=== PATIENT | female | born 1985 | race Caucasian/White ===

== ENCOUNTER 2016-10-24 10:30 | Outpatient (CLI) | payer OTHER ==
[2016-10-24] MEDS ORDERED: NORMAL SALINE 10 ML SYRINGE FLUSH IVP PRN (10:37)
[2016-10-24 10:41] VITALS: RESP 16; TEMP 98
[2016-10-24 11:32] LABS: BACTERIA,URINE RARE; BILIRUBIN,URINE NEGATIVE (NEG); CLARITY,URINE CLEAR (CLEAR); GLUCOSE, URINE (UA) NEGATIVE (NEG); LEUKOCYTE ESTERASE ,URINE TRACE (NEG); NITRATE,URINE NEGATIVE (NEG); OCCULT BLOOD,URINE NEGATIVE (NEG); PH,URINE 6.5 (5.0-8.5); PROTEIN,URINE NEGATIVE (NEG); SQUAMOUS EPITHELIAL CELL,UR FEW; URINE SAMPLE TYPE CLEAN CATCH URINE; UROBILINOGEN,URINE 0.2 mg/dL (0.2); WBC,URINE 0-3
[2016-10-24 12:13] LABS: CANNABINOID SCREEN,URINE NEGATIVE (NEG); COCAINE SCREEN NEGATIVE (NEG); METHAMPHETAMINES SCREEN,URINE NEGATIVE (NEG); TRICYCLIC ANTIDEPRESSANT,URINE NEGATIVE (NEG)
--- NOTE | 2016-10-24 12:35 | DI ---
HISTORY: Vaginal bleeding. COMPARISON: None available. TECHNIQUE: Sonographic images of the pelvis were obtained and submitted for interpretation. 11 imag es. FINDINGS: There is a single live intrauterine with a heart rate of approximately 146 beats per minute. The placenta is located posteriorly. The fetus is in breech presentation currently. The estimated age ranges from 23 weeks 5 days to 24 weeks 4 days. The VANCE is 18.3 cm. The current estimated weight is 657 g. IMPRESSION: 1. There is a single live intrauterine with a heart rate of approximately 146 beats p er minute. 2. The placenta is located posteriorly. The fetus is in breech presentation currently. 3. The estimated age ranges from 23 weeks 5 days to 24 weeks 4 days. 4. The VANCE is 18.3 cm. 5. The current estimated weight is 657 g. NOTE: The interpreting Radiologist was not present at the time of ultrasound interrogation.
--- NOTE | 2016-10-24 12:39 | DI ---
HISTORY: Vaginal bleeding. COMPARISON: None available. TECHNIQUE: Sonographic images of the pelvis were obtained and submitted for interpretation. 11 imag es. FINDINGS: The cervix appears closed, and measures 5.7 cm in length IMPRESSION: 1. The cervix appears closed, and measures 5.7 cm in length.
--- NOTE | 2016-10-24 12:41 | DI ---
HISTORY: Vaginal bleeding. COMPARISON: None available. TECHNIQUE: Sonographic images of the pelvis were obtained and submitted for interpretation. 9 image s. FINDINGS: The sagittal cervix is traced in its entirety, and ranges in measurement from 4.4 cm to 5. 1 cm in length. The cervix appears closed. The placenta is located posteriorly, grade 1. IMPRESSION: 1. The sagittal cervix is traced in its entirety, and ranges in measurement from 4.4 cm to 5.1 cm in length. The cervix appears closed. 2. The placenta is located posteriorly, grade 1.
--- NOTE | 2016-10-25 22:30 | PDOC(PROG) ---
Intake - - Reason for Visit/Chief Complaint: Vaginal Bleeding Admitted From: Home - Estimated Due Date: 02/15/17 Gestational Age in Weeks and Days: 23 Weeks and 6 Days : 3 Para: 1 Births: 1 Number of Abortions (Spont./Elective): 1 Living Children: 1 - Labs Blood Type and Rh: AB - Group B Strep: Unknown Hepatitis B Surface Antigen: Absent HIV: Negative Rubella Status: Immune VDRL/RPR: Absent Maternal - Vital Signs Last Taken Vital Signs: Vital Signs - Last Taken Temperature 98.0 F 10/24/16 10:40 Pulse Rate 106 H 10/24/16 10:40 Respiratory Rate 16 10/24/16 10:40 Blood Pressure 118/71 10/24/16 10:40 Pulse Ox 98 10/24/16 10:40 - Uterine Activity Uterine Contraction Monitor Mode: External Contraction Frequency(minutes): X1 Contraction Duration (seconds): 60 Uterine Tone Measurement Phase: Resting Uterine Contraction Intensity: Moderate - Vaginal Discharge Vaginal Bleeding Amount: Spotting Vaginal Bleeding Onset: began Sunday 10/21 now just with wiping pink Vaginal Discharge Amount: Scant Vaginal Discharge Description: Watery Vaginal Discharge Color: [place] Vaginal Discharge Odor: Odorless Monitoring - Uterine Activity Uterine Contraction Monitor Mode: External Contraction Frequency(minutes): X1 Contraction Duration (seconds): 60 Uterine Tone Measurement Phase: Resting Uterine Contraction Intensity: Moderate Results - Bedside Testing Bedside Urine Ketone: Negative Bedside Urine Leukocytes Esterase: Negative Bedside Urine Nitrite: Negative Bedside Urine Occult Blood: Negative Bedside Urine Protein: Negative Bedside Specific [place]: 1.005 Assessment and Plan - Patient Problems (1) Spotting affecting Status: Acute
== END 2016-10-24 12:40 | disposition home or self-care (01) ==
LOC: OBOP 10:30
PROVIDERS: ATTEND Family Medicine
DX: O46.8X2 Other antepartum hemorrhage, second trimester (principal); Z3A.23 23 weeks gestation of pregnancy
CPT/HCPCS: 59025; 76815 ×2; 76817; 81001; 81003; 84112; 87210; 99211; G0477

== ENCOUNTER → 2016-11-07 | Outpatient (CLI) | payer OTHER ==
[2016-11-07 11:28] LABS: BLOODY SPECIMEN? NO
== END ==
LOC: MOB LAB 10:22
PROVIDERS: ATTEND Family Medicine
DX: O47.02 False labor before 37 completed weeks of gestation, second trimester (principal); Z3A.25 25 weeks gestation of pregnancy
CPT/HCPCS: 82731; 87210

== ENCOUNTER 2016-11-21 12:47 | Outpatient (CLI) | payer OTHER ==
[2016-11-21] MEDS ORDERED: NORMAL SALINE 10 ML SYRINGE FLUSH IVP PRN (12:52)
[2016-11-21 13:22] VITALS: RESP 18; TEMP 98.1
[2016-11-21 13:40] LABS: HEMATOCRIT 38.3 % (37.0-47.0); HEMOGLOBIN 13.2 g/dL (12.0-16.0); MEAN CORPUSCULAR HEMOGLOBIN 31.1 PG (27-31); MEAN CORPUSCULAR HGB CONC 34.5 g/dL (33-37); MEAN PLATELET VOLUME 9.7 FL (7.4-12.2); RDW COEFFICIENT OF VARIATION 13.8 % (11.5-14.5); RED BLOOD COUNT 4.25 10^6/uL (4.20-5.40); WHITE BLOOD COUNT 9.61 10^3/uL (4.8-10.8)
[2016-11-21 13:49] LABS: ASPARTATE AMINO TRANSFERASE 33 IU/L (8-39); BILIRUBIN,TOTAL 0.5 mg/dL (0.3-1.2); BLOOD UREA NITROGEN 5 mg/dL (7-22); CALCIUM 9.3 mg/dL (8.7-10.7); CHLORIDE 103 meq/L (98-112); CREATININE 0.5 mg/dL (0.50-1.20); EST GLOMERULAR FILTRATION > 60 (>60 ml/min/1.73m(2)); GLUCOSE 72 mg/dL (78-110); POTASSIUM 3.7 meq/L (3.8-5.2); SODIUM 137 meq/L (135-145); TOTAL PROTEIN 7.4 g/dL (6.1-8.0); URIC ACID 3.1 mg/dl (2.5-6.2)
[2016-11-21] MEDS ORDERED: [UNRECOGNIZED DRUG - REMARK] IM ONE (14:30)
[2016-11-21 14:37] LABS: BLOODY SPECIMEN? NO
--- NOTE | 2016-11-21 17:43 | DI ---
HISTORY: labor in the 3rd trimester without delivery. COMPARISON: None available. TECHNIQUE: Sonographic images of the pelvis were obtained and submitted for interpretation. FINDINGS: Single intrauterine at 29 weeks 0 days, plus or minus 1.5 weeks of standard alexsander ation. heart rate is recorded at 149 beats per minute. Amniotic fluid index of 17.8 cm. Ther e is evidence of posterior placenta. IMPRESSION: 1. Single intrauterine at 29 weeks 0 days, plus or minus 1.5 weeks of standard deviation. 2. heart rate of 149 beats per minute. 3. Amniotic fluid index of 17.8 cm. 4. Posterior placenta. NOTE: The interpreting Radiologist was not present at the time of ultrasound interrogation.
--- NOTE | 2016-11-21 17:52 | DI ---
HISTORY: labor in the 3rd trimester without delivery. COMPARISON: None available. TECHNIQUE: Sonographic images of the pelvis were obtained transvagianlly and submitted for interpret ation. FINDINGS: Endovaginal examination was performed for better evaluation of the cervix. The cervix mainor sures 4.3 cm. The internal os is closed. IMPRESSION: 1. Endovaginal examination for better evaluation of the cervix. 2. Cervix measures 4.3 cm. 3. Internal os is closed.
--- NOTE | 2016-11-24 13:09 | PDOC(PROG) ---
Intake - - Reason for Visit/Chief Complaint: Contractions Admitted From: Physician Office - Estimated Due Date: 02/15/17 Gestational Age in Weeks and Days: 28 Weeks and 1 Days : 3 Para: 1 Number of Abortions (Spont./Elective): 1 - Labs Blood Type and Rh: AB - Group B Strep: Unknown Hepatitis B Surface Antigen: Absent HIV: Negative Rubella Status: Immune VDRL/RPR: Absent Maternal - Vital Signs Last Taken Vital Signs: Vital Signs - Last Taken Temperature 98.1 F 11/21/16 13:00 Pulse Rate 88 11/21/16 13:00 Respiratory Rate 18 11/21/16 13:00 Blood Pressure 130/64 11/21/16 12:52 Pulse Ox 98 11/21/16 12:52 - Uterine Activity Uterine Contraction Monitor Mode: External Contraction Frequency(minutes): 2-3 Contraction Duration (seconds): 40-100 Uterine Contraction Pattern: Regular Uterine Tone Measurement Phase: soft Uterine Contraction Intensity: Moderate - Vaginal Discharge Vaginal Bleeding Amount: None Vaginal Discharge Amount: Small Vaginal Discharge Color: White Vaginal Discharge Odor: Odorless Vaginal Itching: No Monitoring - Uterine Activity Uterine Contraction Monitor Mode: External Contraction Frequency(minutes): 2-3 Contraction Duration (seconds): 40-100 Uterine Contraction Pattern: Regular Uterine Tone Measurement Phase: soft Uterine Contraction Intensity: Moderate Results - Labs CBC and BMP: 11/21/16 13:23 11/21/16 13:23 - Bedside Testing Bedside Urine Ketone: Negative Bedside Urine Leukocytes Esterase: Negative Bedside Urine Nitrite: Negative Bedside Urine Occult Blood: Negative Bedside Urine Protein: Trace Bedside Specific [place]: 1.005 Assessment and Plan - Patient Problems (1) uterine contractions in third trimester, antepartum Status: Acute
== END 2016-11-21 15:00 | disposition home or self-care (01) ==
LOC: OBOP 12:47
PROVIDERS: ATTEND Family Medicine
DX: O60.03 Preterm labor without delivery, third trimester (principal); Z87.59 Personal history of other complications of pregnancy, childbirth and the puerperium; Z3A.29 29 weeks gestation of pregnancy
CPT/HCPCS: 36415; 59025; 76815; 76817; 80053; 81003; 82731; 83615; 84550; 85025; 87210; 99211

== ENCOUNTER → 2016-11-23 | Outpatient (CLI) | payer OTHER ==
[2016-11-23 08:22] LABS: HEMATOCRIT 38.1 % (37.0-47.0); MEAN CORPUSCULAR HEMOGLOBIN 30.7 PG (27-31); MEAN CORPUSCULAR HGB CONC 34.1 g/dL (33-37); MEAN PLATELET VOLUME 9.3 FL (7.4-12.2); RDW COEFFICIENT OF VARIATION 13.8 % (11.5-14.5); RED BLOOD COUNT 4.24 10^6/uL (4.20-5.40); WHITE BLOOD COUNT 8.2 10^3/uL (4.8-10.8)
== END ==
LOC: LAB 08:03
PROVIDERS: ATTEND Family Medicine
DX: O36.0130 Maternal care for anti-D [Rh] antibodies, third trimester, not applicable or unspecified (principal); O09.893 Supervision of other high risk pregnancies, third trimester; Z36 Encounter for antenatal screening of mother; Z3A.28 28 weeks gestation of pregnancy
CPT/HCPCS: 82950; 84443; 85027; 86850; 86900; 86901; J2790

== ENCOUNTER 2016-11-25 08:27 | Outpatient (CLI) | payer OTHER ==
[2016-11-25] MEDS ORDERED: NORMAL SALINE 10 ML SYRINGE FLUSH IVP PRN (08:33)
[2016-11-25 08:38] VITALS: RESP 18; TEMP 97.4
--- NOTE | 2016-11-28 22:13 | PDOC(PROG) ---
Intake - - Reason for Visit/Chief Complaint: NST Admitted From: Home - LMP: 04/04/17 Estimated Due Date: 02/15/17 Gestational Age in Weeks and Days: 28 Weeks and 5 Days : 2 Para: 1 Births: 1 Number of Abortions (Spont./Elective): 1 Living Children: 1 - Labs Blood Type and Rh: AB - Group B Strep: Unknown Hepatitis B Surface Antigen: Absent HIV: Negative Rubella Status: Immune VDRL/RPR: Absent Maternal - Vital Signs Last Taken Vital Signs: Vital Signs - Last Taken Temperature 97.4 F 11/25/16 08:38 Pulse Rate 100 11/25/16 08:38 Respiratory Rate 18 11/25/16 08:38 Blood Pressure 145/80 11/25/16 08:38 Pulse Ox 99 11/25/16 08:38 - Uterine Activity Uterine Contraction Monitor Mode: External Uterine Contraction Pattern: Irregular - Vaginal Discharge Vaginal Bleeding Amount: None Vaginal Discharge Amount: None Monitoring - Uterine Activity Uterine Contraction Monitor Mode: External Uterine Contraction Pattern: Irregular Assessment and Plan - Patient Problems (1) uterine contractions in third trimester, antepartum Status: Acute
== END 2016-11-25 09:05 | disposition home or self-care (01) ==
LOC: OBOP 08:27
PROVIDERS: ATTEND Family Medicine
DX: O60.03 Preterm labor without delivery, third trimester (principal); Z3A.28 28 weeks gestation of pregnancy
CPT/HCPCS: 59025; 99211

== ENCOUNTER 2016-11-29 08:42 | Outpatient (CLI) | payer OTHER ==
[~2016-11-29 08:42] MED LIST: NORMAL SALINE 10 ML SYRINGE FLUSH IVP PRN
[2016-11-29 09:03] VITALS: RESP 16; TEMP 97.8
[2016-11-29 09:10] LABS: HEMATOCRIT 37.3 % (37.0-47.0); HEMOGLOBIN 12.7 g/dL (12.0-16.0); MEAN CORPUSCULAR HEMOGLOBIN 30.3 PG (27-31); MEAN PLATELET VOLUME 9.6 FL (7.4-12.2); RDW COEFFICIENT OF VARIATION 13.8 % (11.5-14.5); RED BLOOD COUNT 4.19 10^6/uL (4.20-5.40); WHITE BLOOD COUNT 8.24 10^3/uL (4.8-10.8)
[2016-11-29 09:21] LABS: ASPARTATE AMINO TRANSFERASE 33 IU/L (8-39); BILIRUBIN,TOTAL 0.4 mg/dL (0.3-1.2); BLOOD UREA NITROGEN 7 mg/dL (7-22); CHLORIDE 104 meq/L (98-112); CREATININE 0.5 mg/dL (0.50-1.20); EST GLOMERULAR FILTRATION > 60 (>60 ml/min/1.73m(2)); GLUCOSE 109 mg/dL (78-110); POTASSIUM 3.4 meq/L (3.8-5.2); SODIUM 134 meq/L (135-145); TOTAL PROTEIN 6.9 g/dL (6.1-8.0); URIC ACID 3.5 mg/dl (2.5-6.2)
--- NOTE | 2016-11-29 10:35 | DI ---
US OB , LIMITED,11/29/2016 8:46 AM: Clinical History: contractions. Previous Exam: November 21, 2016 Findings: Multiple grayscale and color Doppler sonographic images are obtained through the uterus demonstrating a normal amniotic fluid index measuring 20.6 cm. The placenta appears grossly normal. Estimated gestational age was determined by a composite of biparietal diameter, head circumference, a bdominal circumference and femur length yielding an estimated gestational age by ultrasound of 29 wee ks 2 days. Detected Doppler heart tones measured 136 beats per minute. Impression: Single live intrauterine gestation with size equal to dates.
--- NOTE | 2016-12-07 12:55 | PDOC(PROG) ---
Intake - - Reason for Visit/Chief Complaint: NST Admitted From: Home - Estimated Due Date: 02/15/17 Gestational Age in Weeks and Days: 30 Weeks and 0 Days : 2 Para: 1 Living Children: 1 Maternal - Vital Signs Last Taken Vital Signs: Vital Signs - Last Taken Temperature 97.8 F 11/29/16 08:51 Pulse Rate 115 H 11/29/16 08:51 Respiratory Rate 16 11/29/16 08:51 Blood Pressure 122/72 11/29/16 08:51 Pulse Ox 99 11/29/16 08:30 - Uterine Activity Uterine Contraction Monitor Mode: External Contraction Frequency(minutes): 3-10 Contraction Duration (seconds): 50 Uterine Contraction Pattern: Irregular Uterine Tone Measurement Phase: Resting - Vaginal Discharge Vaginal Bleeding Amount: None Monitoring - Uterine Activity Uterine Contraction Monitor Mode: External Contraction Frequency(minutes): 3-10 Contraction Duration (seconds): 50 Uterine Contraction Pattern: Irregular Uterine Tone Measurement Phase: Resting Results - Labs CBC and BMP: 11/29/16 09:02 11/29/16 09:02 - Bedside Testing Bedside Urine Ketone: Negative Bedside Urine Leukocytes Esterase: Negative Bedside Urine Nitrite: Negative Bedside Urine Occult Blood: Negative Bedside Urine Protein: Negative Bedside Specific [place]: 1.010 Assessment and Plan - Patient Problems (1) uterine contractions in third trimester, antepartum Status: Acute
== END 2016-11-29 10:45 | disposition home or self-care (01) ==
LOC: OBOP 08:42
PROVIDERS: ATTEND Family Medicine
DX: O60.03 Preterm labor without delivery, third trimester (principal); Z87.59 Personal history of other complications of pregnancy, childbirth and the puerperium; Z3A.28 28 weeks gestation of pregnancy
CPT/HCPCS: 36415; 59025; 76815; 80053; 81003; 83615; 84550; 85025; 99211

== ENCOUNTER 2016-12-02 08:23 | Outpatient (CLI) | payer OTHER ==
[2016-12-02 08:48] VITALS: RESP 18
[2016-12-02 09:28] VITALS: TEMP 98
--- NOTE | 2016-12-10 21:08 | PDOC(PROG) ---
Intake - - Reason for Visit/Chief Complaint: Contractions, NST Admitted From: Home - LMP: 04/04/16 Estimated Due Date: 02/15/17 Gestational Age in Weeks and Days: 30 Weeks and 3 Days : 2 Para: 1 Births: 1 Number of Abortions (Spont./Elective): 1 Living Children: 1 - Labs Blood Type and Rh: AB - Hepatitis B Surface Antigen: Absent HIV: Negative Rubella Status: Immune VDRL/RPR: Absent Maternal - Vital Signs Last Taken Vital Signs: Vital Signs - Last Taken Temperature 98.0 F 12/02/16 09:15 Pulse Rate 97 12/02/16 09:15 Respiratory Rate 18 12/02/16 09:15 Blood Pressure 113/78 12/02/16 09:15 Pulse Ox 96 12/02/16 09:15 - Uterine Activity Uterine Contraction Monitor Mode: External Contraction Frequency(minutes): irritable Uterine Tone Measurement Phase: soft - Vaginal Discharge Vaginal Bleeding Amount: None Vaginal Discharge Amount: None Monitoring - Uterine Activity Uterine Contraction Monitor Mode: External Contraction Frequency(minutes): irritable Uterine Tone Measurement Phase: soft Assessment and Plan - Patient Problems (1) uterine contractions in third trimester, antepartum Status: Acute
== END 2016-12-02 09:28 | disposition home or self-care (01) ==
LOC: OBOP 08:23
PROVIDERS: ATTEND Family Medicine
DX: O60.03 Preterm labor without delivery, third trimester (principal); Z87.59 Personal history of other complications of pregnancy, childbirth and the puerperium; Z3A.28 28 weeks gestation of pregnancy
CPT/HCPCS: 59025; 99211

== ENCOUNTER 2016-12-06 07:47 | Outpatient (CLI) | payer OTHER ==
[2016-12-06 08:06] VITALS: RESP 18; TEMP 97.9
[2016-12-06 08:55] LABS: BLOODY SPECIMEN? NO
--- NOTE | 2016-12-08 16:52 | PDOC(PROG) ---
Intake - - Reason for Visit/Chief Complaint: NST Admitted From: Home - LMP: 04/04/16 Estimated Due Date: 02/15/17 Gestational Age in Weeks and Days: 30 Weeks and 1 Days : 2 Para: 1 Births: 1 Number of Abortions (Spont./Elective): 1 Living Children: 1 - Labs Blood Type and Rh: AB - Group B Strep: Unknown Hepatitis B Surface Antigen: Absent HIV: Negative Rubella Status: Immune VDRL/RPR: Absent Maternal - Vital Signs Last Taken Vital Signs: Vital Signs - Last Taken Temperature 97.9 F 12/06/16 08:00 Pulse Rate 108 H 12/06/16 08:00 Respiratory Rate 18 12/06/16 08:00 Blood Pressure 128/77 12/06/16 08:00 Pulse Ox 100 12/06/16 08:00 - Uterine Activity Uterine Contraction Monitor Mode: External Contraction Frequency(minutes): x4 Contraction Duration (seconds): 40 Uterine Contraction Pattern: Irregular - Vaginal Discharge Vaginal Bleeding Amount: None Vaginal Discharge Amount: None Monitoring - Uterine Activity Uterine Contraction Monitor Mode: External Contraction Frequency(minutes): x4 Contraction Duration (seconds): 40 Uterine Contraction Pattern: Irregular Results - Bedside Testing Bedside Urine Ketone: Negative Bedside Urine Leukocytes Esterase: Negative Bedside Urine Nitrite: Negative Bedside Urine Occult Blood: Negative Bedside Urine Protein: Negative Bedside Specific [place]: 1.005 Assessment and Plan - Patient Problems (1) uterine contractions in third trimester, antepartum Status: Acute
== END 2016-12-06 09:00 | disposition home or self-care (01) ==
LOC: OBOP 07:47
PROVIDERS: ATTEND Family Medicine
DX: O60.03 Preterm labor without delivery, third trimester (principal); Z87.59 Personal history of other complications of pregnancy, childbirth and the puerperium; Z3A.30 30 weeks gestation of pregnancy
CPT/HCPCS: 59025; 81003; 82731; 99211

== ENCOUNTER 2016-12-09 12:44 | Outpatient (CLI) | payer OTHER ==
[2016-12-09 13:02] VITALS: RESP 18; TEMP 98
[2016-12-09 13:06] LABS: HEMATOCRIT 38.7 % (37.0-47.0); HEMOGLOBIN 13.2 g/dL (12.0-16.0); MEAN CORPUSCULAR HEMOGLOBIN 30.8 PG (27-31); MEAN CORPUSCULAR HGB CONC 34.1 g/dL (33-37); MEAN PLATELET VOLUME 9.4 FL (7.4-12.2); RED BLOOD COUNT 4.29 10^6/uL (4.20-5.40); WHITE BLOOD COUNT 9.57 10^3/uL (4.8-10.8)
[2016-12-09 13:17] LABS: ASPARTATE AMINO TRANSFERASE 50 IU/L (8-39); BILIRUBIN,TOTAL 0.4 mg/dL (0.3-1.2); BLOOD UREA NITROGEN 7 mg/dL (7-22); CALCIUM 9.2 mg/dL (8.7-10.7); CHLORIDE 102 meq/L (98-112); CREATININE 0.5 mg/dL (0.50-1.20); EST GLOMERULAR FILTRATION > 60 (>60 ml/min/1.73m(2)); GLUCOSE 111 mg/dL (78-110); POTASSIUM 3.6 meq/L (3.8-5.2); SODIUM 135 meq/L (135-145); TOTAL PROTEIN 7.4 g/dL (6.1-8.0); URIC ACID 3.5 mg/dl (2.5-6.2)
[2016-12-09 14:14] LABS: FREE T4 (FREE THYROXINE) 0.79 ng/dL (0.93-1.71)
--- NOTE | 2016-12-09 17:08 | DI ---
US OB , LIMITED,12/09/2016 1:26 PM: Clinical History: contractions and hypertension. Previous Exam: November 29, 2016 Findings: Multiple transabdominal grayscale and color Doppler sonographic images are obtained through the pelvi s demonstrating a normal cervix measuring 3.7 cm in length without funneling. A single live intrauterine gestation is seen in vertex presentation. The placenta is posterior and gr julio cesar 1 without visual defects. Detected Doppler heart tones measure 140 beats per minute. Amniotic fluid index measures 22.2 cm. Impression: Single live intrauterine gestation with normal amniotic fluid index.
--- NOTE | 2016-12-12 21:58 | PDOC(PROG) ---
Intake - - Reason for Visit/Chief Complaint: NST Admitted From: Home - Estimated Due Date: 02/15/17 Gestational Age in Weeks and Days: 30 Weeks and 5 Days : 2 Para: 1 Births: 1 Number of Abortions (Spont./Elective): 1 Living Children: 1 - Labs Blood Type and Rh: AB - Hepatitis B Surface Antigen: Absent HIV: Negative Rubella Status: Immune VDRL/RPR: Absent Maternal - Vital Signs Last Taken Vital Signs: Vital Signs - Last Taken Temperature 98 F 12/09/16 12:54 Pulse Rate 99 12/09/16 12:54 Respiratory Rate 18 12/09/16 12:54 Blood Pressure 135/71 12/09/16 12:54 Pulse Ox 100 12/09/16 12:54 - Uterine Activity Uterine Contraction Monitor Mode: External Contraction Frequency(minutes): 1-3 Contraction Duration (seconds): 40-70 Uterine Contraction Pattern: Regular - Cervical Exam Cervical Dilation (cm): 0 Cervical Effacement Percentage: 0 Station: -4 Exam Performed By: Frieda - Vaginal Discharge Vaginal Bleeding Amount: None Vaginal Discharge Amount: None Monitoring - Uterine Activity Uterine Contraction Monitor Mode: External Contraction Frequency(minutes): 1-3 Contraction Duration (seconds): 40-70 Uterine Contraction Pattern: Regular Results - Labs CBC and BMP: 12/09/16 12:50 12/09/16 12:50 - Bedside Testing Bedside Urine Ketone: Large Bedside Urine Leukocytes Esterase: Negative Bedside Urine Nitrite: Negative Bedside Urine Occult Blood: Negative Bedside Urine Protein: Negative Bedside Specific [place]: 1.020 Assessment and Plan - Patient Problems (1) uterine contractions in third trimester, antepartum Status: Acute - Assessment / Plan Additional Assessment/Plan Details: -discussed with MFMaricel at [facility] in [place]; please see separate note detailing this conversation. Continue testing for now. Will hold off on steroids given negative FFN and no objective signs of labor (ie cervix is closed, thick and high). Continue to follow closely.
== END 2016-12-09 14:48 | disposition home or self-care (01) ==
LOC: OBOP 12:44
PROVIDERS: ATTEND Family Medicine
DX: O60.03 Preterm labor without delivery, third trimester (principal); O16.3 Unspecified maternal hypertension, third trimester; O99.283 Endocrine, nutritional and metabolic diseases complicating pregnancy, third trimester; E03.9 Hypothyroidism, unspecified; Z3A.30 30 weeks gestation of pregnancy
CPT/HCPCS: 36415; 59025; 76815; 80053; 81003; 83615; 84439; 84443; 84550; 85025; 99211

== ENCOUNTER 2016-12-13 08:17 | Outpatient (CLI) | payer OTHER ==
[2016-12-13 08:41] LABS: HEMATOCRIT 38.6 % (37.0-47.0); HEMOGLOBIN 13.3 g/dL (12.0-16.0); MEAN CORPUSCULAR HGB CONC 34.5 g/dL (33-37); MEAN PLATELET VOLUME 9.5 FL (7.4-12.2); RED BLOOD COUNT 4.29 10^6/uL (4.20-5.40); WHITE BLOOD COUNT 9.77 10^3/uL (4.8-10.8)
[2016-12-13 08:52] VITALS: RESP 18
[2016-12-13 09:05] LABS: ASPARTATE AMINO TRANSFERASE 56 IU/L (8-39); BILIRUBIN,TOTAL 0.4 mg/dL (0.3-1.2); BLOOD UREA NITROGEN 9 mg/dL (7-22); CALCIUM 9.2 mg/dL (8.7-10.7); CHLORIDE 101 meq/L (98-112); CREATININE 0.6 mg/dL (0.50-1.20); EST GLOMERULAR FILTRATION > 60 (>60 ml/min/1.73m(2)); GLUCOSE 107 mg/dL (78-110); POTASSIUM 3.4 meq/L (3.8-5.2); SODIUM 134 meq/L (135-145); URIC ACID 3.8 mg/dl (2.5-6.2)
[2016-12-13 09:27] VITALS: TEMP 98
[2016-12-13] MEDS ORDERED: BETAMET ACET/BETAMET NA PH 6 MG/1 ML - 5 ML IM SCH (09:45)
[2016-12-13] MEDS ORDERED: BETAMET ACET/BETAMET NA PH 6 MG/1 ML - 5 ML ONE (10:27)
--- NOTE | 2016-12-20 09:05 | PDOC(PROG) ---
Intake - - Reason for Visit/Chief Complaint: Bi-weekly NST Admitted From: Home - Estimated Due Date: 02/19/17 Gestational Age in Weeks and Days: 31 Weeks and 2 Days : 3 Para: 1 Births: 1 Number of Abortions (Spont./Elective): 1 Living Children: 1 - Labs Blood Type and Rh: AB - Maternal - Vital Signs Last Taken Vital Signs: Vital Signs - Last Taken Temperature 98.0 F 12/13/16 09:26 Pulse Rate 102 H 12/13/16 09:26 Respiratory Rate 18 12/13/16 09:26 Blood Pressure 138/87 12/13/16 09:26 Pulse Ox 97 12/13/16 09:26 - Uterine Activity Uterine Contraction Monitor Mode: External Contraction Frequency(minutes): irritable Uterine Tone Measurement Phase: soft - Vaginal Discharge Vaginal Bleeding Amount: None Vaginal Discharge Amount: None Monitoring - Uterine Activity Uterine Contraction Monitor Mode: External Contraction Frequency(minutes): irritable Uterine Tone Measurement Phase: soft Results - Labs CBC and BMP: 12/13/16 08:26 12/13/16 08:26 - Bedside Testing Bedside Urine Ketone: Negative Bedside Urine Leukocytes Esterase: Negative Bedside Urine Nitrite: Negative Bedside Urine Occult Blood: Large Bedside Urine Protein: 1+ Bedside Specific [place]: 1.020 Assessment and Plan - Assessment / Plan Additional Assessment/Plan Details: Reactive NST. Discharge to home in good condition. - Time Time Spent With Patient: Less Than 15 Minutes
== END 2016-12-13 10:39 | disposition home or self-care (01) ==
LOC: OBOP 08:17
PROVIDERS: ATTEND Family Medicine
DX: O13.3 Gestational [pregnancy-induced] hypertension without significant proteinuria, third trimester (principal); O60.03 Preterm labor without delivery, third trimester; Z3A.30 30 weeks gestation of pregnancy
CPT/HCPCS: 36415; 59025; 80053; 81003; 83615; 84550; 85025; 96372; 99211; J0702

== ENCOUNTER 2016-12-14 09:30 | Outpatient (CLI) | payer OTHER ==
[2016-12-14 10:18] LABS: HEMOGLOBIN 12.6 g/dL (12.0-16.0); MEAN PLATELET VOLUME 9.5 FL (7.4-12.2); RDW COEFFICIENT OF VARIATION 13.8 % (11.5-14.5); RED BLOOD COUNT 4.07 10^6/uL (4.20-5.40); WHITE BLOOD COUNT 12.11 10^3/uL (4.8-10.8)
[2016-12-14 10:45] LABS: ASPARTATE AMINO TRANSFERASE 75 IU/L (8-39); BILIRUBIN,TOTAL 0.4 mg/dL (0.3-1.2); BLOOD UREA NITROGEN 6 mg/dL (7-22); CALCIUM 9.1 mg/dL (8.7-10.7); CHLORIDE 102 meq/L (98-112); CREATININE 0.6 mg/dL (0.50-1.20); EST GLOMERULAR FILTRATION > 60 (>60 ml/min/1.73m(2)); GLUCOSE 116 mg/dL (78-110); POTASSIUM 3.6 meq/L (3.8-5.2); SODIUM 134 meq/L (135-145); TOTAL PROTEIN 7.3 g/dL (6.1-8.0); URIC ACID 3.9 mg/dl (2.5-6.2)
[2016-12-14 11:07] VITALS: RESP 18; TEMP 98.2
[2016-12-16 12:47] LABS: 24 HR URINE CREA 631.1 mg/DAY
[2016-12-16 12:48] LABS: 24 HOUR URINE CREA CONCENTR 15.3 mg/dL
--- NOTE | 2016-12-20 17:50 | PDOC(PROG) ---
Intake - - Reason for Visit/Chief Complaint: NST, Other Additional Reason(s) for Visit: Labs, 24hr urine protein Admitted From: Home - Estimated Due Date: 02/15/17 Gestational Age in Weeks and Days: 31 Weeks and 6 Days : 2 Para: 1 Births: 1 Number of Abortions (Spont./Elective): 1 Living Children: 1 - Labs Blood Type and Rh: AB - Group B Strep: Unknown Hepatitis B Surface Antigen: Absent HIV: Negative Rubella Status: Immune VDRL/RPR: Absent Maternal - Vital Signs Last Taken Vital Signs: Vital Signs - Last Taken Temperature 98.2 F 12/14/16 11:04 Pulse Rate 102 H 12/14/16 11:04 Respiratory Rate 18 12/14/16 11:04 Blood Pressure 128/78 12/14/16 11:04 Pulse Ox 99 12/14/16 11:04 - Uterine Activity Uterine Contraction Monitor Mode: External Contraction Frequency(minutes): 3-11 Contraction Duration (seconds): 40-50 Uterine Contraction Pattern: Irregular Uterine Tone Measurement Phase: soft Uterine Contraction Intensity: Mild - Vaginal Discharge Vaginal Bleeding Amount: None Vaginal Discharge Amount: None Monitoring - Uterine Activity Uterine Contraction Monitor Mode: External Contraction Frequency(minutes): 3-11 Contraction Duration (seconds): 40-50 Uterine Contraction Pattern: Irregular Uterine Tone Measurement Phase: soft Uterine Contraction Intensity: Mild Results - Labs CBC and BMP: 12/14/16 09:57 12/14/16 09:57 Assessment and Plan - Patient Problems (1) uterine contractions in third trimester, antepartum Status: Acute (2) Headache Status: Acute (3) Elevated liver enzymes Status: Acute - Assessment / Plan Additional Assessment/Plan Details: -spoke with Dr. Gio Elam re: pt labs, NST, blood pressures and sx. Because of her h/o severe pre-eclampsia at 34 weeks and her current clinical status, he recommended that the pt present there by [facility] for evaluation. I discussed this on the phone with the pt and her OB nurse. Pt is in agreement with the plan and will go to [facility] as soon as she gathers some belongings.
== END 2016-12-14 12:10 ==
LOC: OBOP 09:30
PROVIDERS: ATTEND Family Medicine
DX: O60.03 Preterm labor without delivery, third trimester (principal); O26.893 Other specified pregnancy related conditions, third trimester; R51 Headache; R79.89 Other specified abnormal findings of blood chemistry; Z3A.30 30 weeks gestation of pregnancy
CPT/HCPCS: 36415; 59025; 80053; 82570; 83615; 84156; 84550; 85025; 99211

== ENCOUNTER → 2017-01-18 | Outpatient (CLI) | payer OTHER | LOC: MOB LAB 13:26 | PROVIDERS: ATTEND Family Medicine | DX: Z36 Encounter for antenatal screening of mother (principal); Z3A.36 36 weeks gestation of pregnancy | CPT/HCPCS: 87150 ==

== ENCOUNTER 2017-01-20 08:27 | Outpatient (CLI) | payer OTHER ==
[2017-01-20 09:23] LABS: HEMATOCRIT 37.8 % (37.0-47.0); HEMOGLOBIN 12.7 g/dL (12.0-16.0); MEAN CORPUSCULAR HEMOGLOBIN 29.8 PG (27-31); MEAN CORPUSCULAR HGB CONC 33.6 g/dL (33-37); MEAN CORPUSCULAR VOLUME 88.7 FL (81-99); MEAN PLATELET VOLUME 9.4 FL (7.4-12.2); RED BLOOD COUNT 4.26 10^6/uL (4.20-5.40)
[2017-01-20 09:32] LABS: BLOOD UREA NITROGEN 7 mg/dL (7-22); BUN/CREATININE RATIO 11.66 (6-20); CALCIUM 9.3 mg/dL (8.7-10.7); EST GLOMERULAR FILTRATION > 60 (>60 ml/min/1.73m(2)); SERUM ALBUMIN 3.7 g/dL (3.5-4.8); URIC ACID 3.2 mg/dl (2.5-6.2)
[2017-01-20 10:19] VITALS: RESP 18; TEMP 98.3
--- NOTE | 2017-01-20 10:40 | DI ---
US OB , LIMITED,01/20/2017 8:43 AM: Clinical History: Past history of HELLP syndrome. Previous Exam: December 09, 2016 Findings: Multiple grayscale and color Doppler sonographic images are obtained through the pelvis demonstrating a single live intrauterine gestation in vertex presentation. The cervix is long and closed measuring 4.3 cm in length. Amniotic fluid index measured 25.3 cm. There is normal respiratory motion and motion of the limbs. The placenta is posterior and grade 1 with no visible defects. Estimated gestational age was determined by a composite of biparietal diameter, head circumference, a bdominal circumference and femur length yielding an estimated gestational age by ultrasound of 36 wee ks 5 days. Estimated weight is 3050 g (68th percentile). Detected Doppler heart tones measure 150 beats per minute. Impression: Single live intrauterine gestation with size equal to dates. Amniotic fluid index at the upper level of normal.
== END 2017-01-20 10:54 | disposition home or self-care (01) ==
LOC: OBOP 08:27
PROVIDERS: ATTEND Family Medicine
DX: O60.03 Preterm labor without delivery, third trimester (principal); O26.893 Other specified pregnancy related conditions, third trimester; R94.5 Abnormal results of liver function studies; O09.293 Supervision of pregnancy with other poor reproductive or obstetric history, third trimester; Z3A.36 36 weeks gestation of pregnancy
CPT/HCPCS: 59025; 76815; 80053; 83615; 84550; 85025; 99211

== ENCOUNTER 2017-01-24 13:52 | Outpatient (CLI) | payer OTHER ==
[2017-01-24 14:34] VITALS: RESP 18; TEMP 98.5
== END 2017-01-24 15:40 | disposition home or self-care (01) ==
LOC: OBOP 13:52
PROVIDERS: ATTEND Family Medicine
DX: O60.03 Preterm labor without delivery, third trimester (principal); O09.893 Supervision of other high risk pregnancies, third trimester; O26.893 Other specified pregnancy related conditions, third trimester; R94.5 Abnormal results of liver function studies; Z3A.36 36 weeks gestation of pregnancy
CPT/HCPCS: 59025; 99211

== ENCOUNTER 2017-01-27 08:28 | Inpatient (IN) | payer OTHER ==
[2017-01-27 09:07] LABS: HEMATOCRIT 37.8 % (37.0-47.0); HEMOGLOBIN 12.7 g/dL (12.0-16.0); MEAN CORPUSCULAR HEMOGLOBIN 29.4 PG (27-31); MEAN CORPUSCULAR HGB CONC 33.6 g/dL (33-37); MEAN CORPUSCULAR VOLUME 87.5 FL (81-99); MEAN PLATELET VOLUME 10.1 FL (7.4-12.2); RED BLOOD COUNT 4.32 10^6/uL (4.20-5.40)
[2017-01-27] MEDS ORDERED: LIDOCAINE W/ SODIUM BICARB 0.5 ML SYR ONE (09:18)
[2017-01-27 09:28] LABS: BLOOD UREA NITROGEN 7 mg/dL (7-22); BUN/CREATININE RATIO 11.66 (6-20); CALCIUM 9.2 mg/dL (8.7-10.7); EST GLOMERULAR FILTRATION > 60 (>60 ml/min/1.73m(2)); SERUM ALBUMIN 3.8 g/dL (3.5-4.8); URIC ACID 3.9 mg/dl (2.5-6.2)
[2017-01-27] MEDS ORDERED: Lactated Ringers 1,000 ML PRIMARY IV SCH ×2 (09:42→10:15)
[2017-01-27] MEDS ORDERED: LIDOCAINE W/ SODIUM BICARB 0.5 ML SYR SUBD ONE (09:42)
[2017-01-27] MEDS ORDERED: Famotidine Inj 20 MG in Normal Saline Flush 10 ML IVP ONE (10:08)
[2017-01-27] MEDS ORDERED: CITRIC ACID/SODIUM CITRATE 30 ML CUP PO ONE (10:08)
[2017-01-27] MEDS ORDERED: LIDOCAINE W/ SODIUM BICARB 0.5 ML SYR SUBD PRN (10:08)
[2017-01-27] MEDS ORDERED: Lactated Ringers 1,000 ML PRIMARY IV ONE (10:08)
[2017-01-27] MEDS ORDERED: NORMAL SALINE 10 ML SYRINGE FLUSH IVP PRN ×3 (10:08→12:08)
[2017-01-27] MEDS ORDERED: CefOXitin Inj 2 GM in Sodium Chloride 0.9% 100 ML IV ONE (10:08)
[2017-01-27] MEDS ORDERED: Metoclopramide Inj 10 MG/2 ML VIAL IV ONE (10:08)
[2017-01-27] MEDS ORDERED: Oxytocin 20 Units + LR 1,000 ML IV SCH ×2 (10:15→12:08)
[2017-01-27] MEDS ORDERED: fentaNYL Inj 100 MCG/2 ML VIAL ONE (10:20)
[2017-01-27] MEDS ORDERED: Oxytocin 20 Units + LR 1,000 ML IV ONE (10:21)
[2017-01-27 10:29] LABS: FREE T4 (FREE THYROXINE) 0.8 ng/dL (0.93-1.71)
--- NOTE | 2017-01-27 10:39 | OB.PROGRES ---
Date and Time of Service: 01/27/17 @ 0930 Interval History: Pt is a 31 yo at 37 2/7 weeks by early u/s with a h/o severe HELLP syndrome requiring exchange transfusion at 34 1/2 weeks with her last baby. She has been monitored closely this , and her liver enzymes actually started trending up at 31 weeks and she was transferred to this for that reason. She was monitored closely there and ended up coming home at 36 weeks undelivered with normal liver enzymes. She was seen last week and labs were normal. She has contracted intermittently for a majority of the third trimester , but noted last noc, through the noc and today, that they have been more regular and painful. She denies any vag bleeding or gushes of fluid. Baby has been active. She has had a REARDON intermittently for most of the second half of her with multiple medications and interventions in [place]. She has also had RUQ pain for most of the past 8 weeks, but the MFM in [place] believed that the pain was from the position of the baby. Objective - Cervical Exam [place]: every 3-5 minutes, palpating moderate to hard. Heart Rate: 150s, had several late decelerations, but this resolved with position change. - Labs CBC and BMP: 01/27/17 09:02 01/27/17 09:02 Labs - Last 24 Hours: Laboratory Results 01/27/17 01/27/17 01/27/17 Range/Units 09:00 09:01 09:02 WBC 7.36 (4.8-10.8) 10^3/uL RBC 4.32 (4.20-5.40) 10^6/uL Hgb 12.7 (12.0-16.0) g/dL Hct 37.8 (37.0-47.0) % MCV 87.5 (81-99) FL MCH 29.4 (27-31) PG MCHC 33.6 (33-37) g/dL RDW Std Deviation 44.5 (39-50) fL RDW Coeff of Valerie 14.4 (11.5-14.5) % Plt Count 178 (140-350) 10*3/uL MPV 10.1 (7.4-12.2) FL Sodium 134 L (135-145) meq/L Potassium 3.5 L (3.8-5.2) meq/L Chloride 103 (98-112) meq/L Carbon Dioxide 19 L (23-33) meq/L Anion Gap 12 (5-20) BUN 7 (7-22) mg/dL Creatinine 0.6 (0.50-1.20) mg/dL Estimated GFR > 60 (>60 ml/min/1.73m(2)) BUN/Creatinine Ratio 11.66 (6-20) Glucose 156 H (78-110) mg/dL Calculated Osmolality 278.0 (267-292) mOsm/kg Uric Acid 3.9 (2.5-6.2) mg/dl Calcium 9.2 (8.7-10.7) mg/dL Total Bilirubin 0.7 (0.3-1.2) mg/dL AST 67 H (8-39) IU/L ALT 57 H (9-52) IU/L Alkaline Phosphatase 135 H (38-126) IU/L Lactate Dehydrogenase 442 (313-618) IU/L Total Protein 7.2 (6.1-8.0) g/dL Albumin 3.8 (3.5-4.8) g/dL Globulin 3.4 (2.50-4.10) g/dL Albumin/Globulin Ratio 1.10 L (1.3-2.0) mg/g TSH Pending Free T4 0.80 L (0.93-1.71) ng/dL Blood Type AB NEGATIVE Antibody Screen Positive Antibody Identification Pending - Vital Signs Last Taken Vital Signs: Vital Signs - Last Taken Temperature 98.0 F 01/27/17 09:54 Pulse Rate 104 H 01/27/17 09:54 Respiratory Rate 20 01/27/17 09:54 Blood Pressure 116/72 01/27/17 09:54 Pulse Ox 98 01/27/17 09:54 Assessment and Plan - Patient Problems (1) Elevated liver enzymes Current Visit: No Status: Acute (2) Uterine scar from previous delivery Current Visit: Yes Status: Acute - Assessment / Plan Additional Assessment/Plan Details: -pt appears to be laboring, and with her previous uterine scar and the fact that she is early term, will proceed to repeat section. The pt has signed a consent for this last week, but I verbally consented her again. -liver enzymes noted to be elevated today. Pt has a previous h/o HELLP syndrome. Will recheck labs tonight and start mag sulfate if her blood pressures elevated or she is symptomatically worse (currently asymptomatic). -OR crew notified, will proceed to the OR as soon as possible.
[2017-01-27] MEDS ORDERED: ePHEDrine Inj 50 MG/ML AMP ONE (10:56)
[2017-01-27] MEDS ORDERED: Carboprost Inj 250 MCG/ML AMP IM ONE (11:08)
[2017-01-27] MEDS ORDERED: KETOROLAC 30 MG/1 ML VIAL ONE (11:12)
[2017-01-27] MEDS ORDERED: Lactated Ringers 2,000 ML PRIMARY IV ONE (11:26)
[2017-01-27] MEDS ORDERED: HYDROmorphone 2 MG/1 ML IVP PRN (11:46)
[2017-01-27] MEDS ORDERED: ONDANSETRON 4 MG/2 ML VIAL IVP PRN ×2 (11:46→12:08)
--- NOTE | 2017-01-27 11:48 | CRNA.PROCE ---
Central Neuraxis Block Placemt - - Safety Measures: Time Out Taken - - Type of Block: Subarachnoid Reason for Block: Surgical Moniters Used During Block: EKG, SPO2, NIBP Skin Prep Used: ChloroPrep Draped: No Skin Infiltration - Enter Amount Used in Comment Field: 1% Xylocaine (mL): Yes ( skin wheal) Spinal Needle Used: 25 Venancio 80 mm Local Anesthetic - Enter Amount Used in Comment Field: 0.75 % Bupivacaine with Dextrose (ml): Yes (2ml) Additive Used - Enter Amount Used in Comment Field: Fentanyl (mcg): Yes (15mcg) Bioclusive Dressing Applied: No
[2017-01-27] MEDS ORDERED: Nalbuphine Inj 20 MG/ML Ampule IVP PRN (12:08)
[2017-01-27] MEDS ORDERED: Famotidine Inj 20 MG in Normal Saline Flush 10 ML IVP PRN (12:08)
[2017-01-27] MEDS ORDERED: LANOLIN HPA 40 GM TUBE TOPICAL PRN (12:08)
[2017-01-27] MEDS ORDERED: Naloxone Inj 0.01 MG, Sodium Chloride 0.9% vial 1 ML IVP PRN ×2 (12:08)
[2017-01-27] MEDS ORDERED: DIPH,PERTUSS,TET(ADACEL) VAC/PF 0.5 ML (Tdap) IM SCH (12:08)
[2017-01-27] MEDS ORDERED: Carboprost Inj 250 MCG/ML AMP IM PRN (12:08)
[2017-01-27] MEDS ORDERED: MISOPROSTOL 200 MCG TABLET RECTAL ONE (12:08)
[2017-01-27] MEDS ORDERED: CALCIUM CARBONATE 500 MG (TUMS) CHEWABLE TABLET PO PRN (12:08)
[2017-01-27] MEDS ORDERED: OXYTOCIN 10 UNIT/1 ML IM ONE (12:08)
[2017-01-27] MEDS ORDERED: HYDROmorphone 2 MG/1 ML IV PRN (12:08)
[2017-01-27] MEDS ORDERED: diphenhydrAMINE 25 MG CAPSULE PO PRN (12:08)
[2017-01-27] MEDS ORDERED: diphenhydrAMINE 50 MG/1 ML VIAL IV PRN (12:08)
--- NOTE | 2017-01-27 12:19 | OB.OP.NOTE ---
Operative Report Surgeon: Jm Barahona MD Yard Pipe Grader: Adrian Taylor MD Anesthesia Type: Regional Anesthesia Provider: Miguel Dong CRNA Surgery Date: 01/27/17 Preoperative Diagnosis: 1. Previous section x 1. 2. Labor. 3. h/o HELLP syndrome with previous . 4. Slightly elevated liver enzymes currently. Normotensive. Postoperative Diagnosis: same, delivered. Procedure: Repeat section. Complications: none Estimated Blood Loss (mL): 800 Urine Output (mL): 125 Fluids: 1500 cc of Lactated Ringers Indications: We do not offer vaginal after section trials at our facility and the patient did not desire this. She is requesting a repeat section. Findings: Male infant in cephalic presentation, mild polyhydramnios. Clear amniotic fluid. Description of Procedure: The patient was taken to the operating room where spinal anesthesia was found to be adequate. She was then prepared and draped in the normal sterile fashion in the dorsal supine position with a leftward tilt. A Pfannenstiel skin incision was then made with the scalpel and carried through to the underlying layer of fascia with Bovie. The fascia was incised in the midline and the incision extended laterally with the Bovie. The superior aspect of the fascial incision was then grasped with Cecil clamps, elevated and the underlying rectus muscles dissected off bluntly. Attention was then turned to the inferior aspect of this incision which, in a similar fashion, was grasped with Cecil clamps and the rectus muscles dissected off both bluntly and with the Bovie. The rectus muscle was then in the midline, and the peritoneum identified, tented up, and entered in blunt fashion. The peritoneal incision was then extended superiorly and inferiorly with good visualization of the bladder. Peritoneal adhesions to the lower uterine segment were noted and these were reduced with the bovie. The Greg retractor was then inserted and the vesicouterine peritoneum was identified. A bladder flap was made with the Metzembaum scissors. The lower uterine segment was incised in a transverse fashion with the scalpel. The uterine incision was then extended laterally in a blunt fashion. The 's head was delivered atraumatically. The nose and mouth were suctioned with the bulb suction and the cord clamped and cut. The was handed off to the awaiting nurse. Cord gases and cord blood were sent for analysis. The placenta was then removed manually; the uterus exteriorized, and cleared of all clots and debris. The uterine incision was repaired with 0 Vicryl in a running, locked fashion. A second layer of the same suture was used to obtain excellent hemostasis. The peritoneal cavity was then copiously irrigated with warm saline. The uterus was returned to the abdomen. The paracolic gutters were copiously irrigated with warm saline and a second look at the uterine incision continued to reveal excellent hemostasis. The peritoneum was closed with 3-0 Vicryl. The fascia reapproximated with looped 0 PDS in a running fashion. The subcutaneous space was irrigated with copiously with warm saline and then closed first with 3-0 Vicryl and then more superficially with Insorb absorbable sutures. The skin was reapproximated with Steri-Strips and a Silverlon dressing applied. Fundal massage was completed with no clots in vaginal vault. The patient tolerated the procedure well. Sponge, lap, and needle counts were correct x2. Mefoxin was given preoperatively less than one hour prior to incision time. The patient was taken to the recovery room in stable condition. Patient Problems - Patient Problem List (1) Elevated liver enzymes Current Visit: No Status: Acute (2) Uterine scar from previous delivery Current Visit: Yes Status: Acute
[2017-01-27] MEDS: oxyCODONE-ACETAMINOPHEN 5-325 TAB PO PRN ×3 (13:51→21:46)
[2017-01-27] MEDS ORDERED: RHO(D) IMMUNE GLOBULIN 1500 UNIT(300 mcg)SYRIN IM PRN (15:21)
[2017-01-27] MEDS: KETOROLAC 30 MG/1 ML VIAL IVP PRN ×2 (17:15→23:30)
[2017-01-27] MEDS: D5-LR 1,000 ML PRIMARY IV SCH (17:59)
[2017-01-28] MEDS: oxyCODONE-ACETAMINOPHEN 5-325 TAB PO PRN ×6 (01:30→21:05)
[2017-01-28 01:57] VITALS: RESP 18
[2017-01-28] MEDS: D5-LR 1,000 ML PRIMARY IV SCH (02:08)
[2017-01-28] MEDS: LEVOTHYROXINE 50 MCG TABLET PO SCH (05:08)
[2017-01-28] MEDS: KETOROLAC 30 MG/1 ML VIAL IVP PRN (05:08)
[2017-01-28 05:21] LABS: HEMATOCRIT 32.6 % (37.0-47.0); MEAN CORPUSCULAR HEMOGLOBIN 29.8 PG (27-31); MEAN CORPUSCULAR HGB CONC 33.7 g/dL (33-37); MEAN CORPUSCULAR VOLUME 88.3 FL (81-99); MEAN PLATELET VOLUME 10.1 FL (7.4-12.2); RED BLOOD COUNT 3.69 10^6/uL (4.20-5.40)
[2017-01-28 05:27] LABS: BLOOD UREA NITROGEN 4 mg/dL (7-22); CALCIUM 8.9 mg/dL (8.7-10.7); EST GLOMERULAR FILTRATION > 60 (>60 ml/min/1.73m(2)); SERUM ALBUMIN 2.9 g/dL (3.5-4.8); URIC ACID 3.6 mg/dl (2.5-6.2)
[2017-01-28] MEDS ORDERED: Prenatal Multivitamin Tab 1 TAB TAB PO SCH (09:00)
[2017-01-28] MEDS: Senna/Docusate Tab 1 TAB TAB PO SCH ×2 (10:06→21:05)
--- NOTE | 2017-01-28 11:23 | OB.PROGRES ---
Subjective Post Op Day: 1 Pain Management: PO [place] Catheter: No Flatus: No Diet: Regular Feeding Method: Pumping Ambulating: Yes Concerns / Additional Information: 31 yo G2 now P2, s/p repeat LTCS at 37 2/7 weeks gestation for active labor. Delivery uncomplicated. Infant transferred early this morning for respiratory distress. Mom has essentially been up for 48 hours. Catheter out, she has been up ambulating. In the shower now. Would like to d/c this afternoon if possible. OB History notable for HELLP syndrome with last , elevated LFTs this around 31 weeks and was shipped to [place]. LFTs then normalized and she returned home around 36 weeks. LFTs bumped slightly yesterday preop as below , improving this morning. Patient has had RUQ pain since 20 weeks gestation, says pain is still there this morning, perhaps slightly worse. Incisional pain as expected. Patient notes swelling in feet. 01/27/17 01/28/17 09:02 05:13 WBC 7.36 9.16 Hgb 12.7 11.0 L Hct 37.8 32.6 L Plt Count 178 147 BUN 7 4 L Creatinine 0.6 0.5 Uric Acid 3.9 3.6 AST 67 H 51 H ALT 57 H 48 Alkaline Phosphatase 135 H 92 Lactate Dehydrogenase 442 650 H Objective - General General Appearance: POSITIVE: No Acute Distress, Cooperative - Cardiovacular Cardiovascular Exam: POSITIVE: RRR Edema: +1 Pedal Edema Extremities: Negative Rodrigo's - Bilaterally - Respiratory Respiratory Exam: POSITIVE: Clear to Auscultation - Bilaterally, Breathing Non Labored - Abdomen Bowel Sounds: Hypoactive Abdominal Wound Assessment: Silverlone Dressing - Fundus/Lochia/Perineum Uterus Consistency: Firm Uterus Position: POSITIVE: At Umbilicus Lochia Amount: Small 10-25 ml Lochia Color: Rubra/Red Assesstment / Plan (1) S/P section Current Visit: Yes Status: AcuteSupport Text: 31 yo G2 now P2 s/p repeat LTCS, POD 1. H/o severe HELLP with last . LFTs started bumping yesterday, trending down today. -To shower, change silverlon dressing -Rest this afternoon - if doing great will consider early d/c so she can be with her son in the NICU in [place] -Plan to recheck labs tomorrow morning, sooner if d/c early with orders written to check in [place] if needed -Rh negative, received first rhogam dose, screen positive Kleihauer-Betke testing pending still -Pain controlled with po pain medications -Continue close monitoring
--- NOTE | 2017-01-28 12:38 | CRNA.PROGR ---
Anesthesia Note Anesthesia Progress Note: Post OP Anesthesia Note Pt is up ambulating, just got our of the shower. Pain is well under control with current regimen, she has been tolerating a regular diet and denies any residual problems of the SAB. Current VSS. Vital Signs (Last 8 hours) Temp Pulse Resp BP Pulse Ox 01/28/17 09:00 98.5 F 73 18 111/73 96 01/28/17 04:56 98.3 F 79 18 114/69 96 01/28/17 04:46 96
[2017-01-28] MEDS: IBUPROFEN 800 MG TABLET PO PRN ×2 (13:17→21:05)
[2017-01-28] MEDS ORDERED: oxyCODONE IR Tab 5 MG TAB PO PRN (18:49)
[2017-01-29] MEDS: oxyCODONE-ACETAMINOPHEN 5-325 TAB PO PRN ×2 (01:03→04:46)
[2017-01-29] MEDS: IBUPROFEN 800 MG TABLET PO PRN (04:46)
[2017-01-29] MEDS: LEVOTHYROXINE 50 MCG TABLET PO SCH (04:46)
[2017-01-29 04:57] LABS: HEMATOCRIT 35.1 % (37.0-47.0); HEMOGLOBIN 11.6 g/dL (12.0-16.0); MEAN CORPUSCULAR HEMOGLOBIN 29.7 PG (27-31); MEAN CORPUSCULAR VOLUME 89.8 FL (81-99); MEAN PLATELET VOLUME 9.6 FL (7.4-12.2); RED BLOOD COUNT 3.91 10^6/uL (4.20-5.40)
[2017-01-29 05:07] LABS: BLOOD UREA NITROGEN 7 mg/dL (7-22); BUN/CREATININE RATIO 11.66 (6-20); EST GLOMERULAR FILTRATION > 60 (>60 ml/min/1.73m(2)); URIC ACID 3.9 mg/dl (2.5-6.2)
[2017-01-29] MEDS ORDERED: OMEPRAZOLE 20 MG CAPSULE PO SCH (07:00)
[2017-01-29 07:23] VITALS: TEMP 97.6
--- NOTE | 2017-01-29 08:29 | DCSUMMARY ---
Hospitalization Summary Admit Date: 01/27/17 Discharge Date: 01/29/17 Primary Diagnosis:: s/p repeat LTCS Secondary Diagnosis:: h/o HELLP syndrome Delivery Type: Hospital Course: 31 yo G2 now P2 presented in active labor at 37 2/7 weeks gestation, now POD 2 s /p repeat LTCS. Delivery uncomplicated. OB History notable for severe HELLP syndrome with last requiring 10 day hospitalization and exchange transfusion x2. She did have elevated LFTs this around 31 weeks and was transferred to [place]. LFTs then normalized and she returned home around 36 weeks gestation. LFTs bumped slightly preop, they have normalized now on POD 2. Patient has had RUQ pain since 20 weeks gestation, says pain is still there this morning, stable. Incisional pain as expected. Patient notes swelling in feet, somewhat improved since POD 1. Patient anxious for discharge so she can travel to [place] to be with her son who is currently in the NICU. / Postop Complications: none apparent [place] Complications: Infant with apgars 9,9. He had a poor transition shortly after. He was started on bubble cpap, still with significant retractions, work of breathing. He initially improved with a course of surfactant. However, he regressed again and was ultimately sent to the NICU in [place] for further care. Exam - Vitals Vital Signs: Vital Signs Temperature 97.6 F Temperature Source Oral Pulse Rate [Pulse Oximeter] 70 Pulse Rate 68 Respiratory Rate 18 Blood Pressure [Right Arm] 112/67 Blood Pressure 125/64 Pulse Ox 96 Oxygen Delivery Method Room Air Height 5 ft 3 in Weight 194 lb - General General Appearance: POSITIVE: No Acute Distress, Cooperative - Head Head Exam: POSITIVE: Normal Inspection - Eye Eye Exam: POSITIVE: Normal Appearance - Respiratory Respiratory Exam: POSITIVE: Clear to Auscultation - Bilaterally, Breathing Non Labored - Cardiovascular Cardiovascular Exam: POSITIVE: RRR - GI/Abdominal GI/Abdominal Exam: POSITIVE: Normal Bowel Sounds, Soft Additional GI/Abdominal Exam Details: TTP in RUQ, at the fundus - improved from yesterday. Mild TTP LUQ Silverlon dressing in place - Extremities Extremities Exam: POSITIVE: Negative Rodrigo's sign, +1 Edema. NEGATIVE: Calf Tenderness - Neurological Neurological Exam: POSITIVE: Alert, Oriented x 3 - Psychiatric Psychiatric Exam: POSITIVE: Normal Affect, Normal Mood - Integumentary Integumentary Exam: POSITIVE: Normal Color Data Perinent Studies: 01/27/17 01/27/17 01/28/17 09:01 09:02 05:00 WBC 7.36 Hgb 12.7 Hct 37.8 Plt Count 178 Sodium 134 L Potassium 3.5 L Chloride 103 Carbon Dioxide 19 L BUN 7 Creatinine 0.6 Glucose 156 H Uric Acid 3.9 Total Bilirubin 0.7 AST 67 H ALT 57 H Alkaline Phosphatase 135 H Lactate Dehydrogenase 442 TSH 1.19 Free T4 0.80 L Blood Type AB NEGATIVE 01/28/17 01/29/17 05:13 04:53 WBC 9.16 8.59 Hgb 11.0 L 11.6 L Hct 32.6 L 35.1 L Plt Count 147 171 Sodium 135 137 Potassium 3.5 L 4.0 Chloride 104 103 Carbon Dioxide 23 25 BUN 4 L 7 Creatinine 0.5 0.6 Glucose 96 84 Uric Acid 3.6 3.9 Total Bilirubin 0.5 0.4 AST 51 H 34 ALT 48 45 Alkaline Phosphatase 92 92 Lactate Dehydrogenase 650 H 538 TSH Free T4 Blood Type Patient Problems - Patient Problem List (1) S/P section Current Visit: Yes Status: AcuteSupport Text: 31 yo G2 now P2 s/p repeat LTCS, POD 2. -D/c today, mom to travel to [place] to be with son in NICU -H/o severe HELLP with last . LFTs started bumping on admission, normal today. BPs have been normal. Continued RUQ pain since 20 weeks gestation. Minimal edema. Normal reflexes, no clonus. Patient given very strict precautions. She will be checking her BP. To have her labs drawn Monday or Monday at the lab in [place] - order written. Low threshold to go to ER for any concerns given her history. -Rh negative, received rhogam. screen positive, Kleihauer-Betke testing completed, rhogam dose was sufficient. -Rx for percocet 5/325 #40, Docusate 100 mg po bid #60, Motrin 800mg #60 written. To continue PNV, levothyroxine.
== END 2017-01-29 08:35 | disposition home or self-care (01) | DRG 766 ==
LOC: OBIP 08:28 → US 08:28 → OPS 10:08 → MED/SURG 12:23 → OBIP 13:19
PROVIDERS: ADMIT Family Medicine; ATTEND Family Medicine
PROC: 10D00Z1 Extraction of Products of Conception, Low, Open Approach (ICD-10-PCS; principal; 2017-01-27 11:00)
DX: O34.211 Maternal care for low transverse scar from previous cesarean delivery (principal); N85.8 Other specified noninflammatory disorders of uterus; Z3A.37 37 weeks gestation of pregnancy; Z37.0 Single live birth; O28.0 Abnormal hematological finding on antenatal screening of mother; R79.89 Other specified abnormal findings of blood chemistry
CPT/HCPCS: 36415; 80053; 81003; 83615; 84439; 84443; 84550; 85025; 85460; 86850; 86870; 86900; 86901; 86970; 94150; 94761; J1885; J2765; J2790; J3010; J7050; J7120

== ENCOUNTER 2017-03-29 12:43 | Emergency (ER) | payer OTHER ==
[2017-03-29] MEDS ORDERED: NORMAL SALINE 10 ML SYRINGE FLUSH IVP PRN (12:54)
[2017-03-29] MEDS ORDERED: ONDANSETRON 4 MG/2 ML VIAL IVP ONE (12:54)
[2017-03-29] MEDS ORDERED: KETOROLAC 15 MG/1 ML VIAL IVP ONE (12:54)
[2017-03-29] MEDS ORDERED: Sodium Chloride 0.9% 1,000 ML PRIMARY IV ONE (12:54)
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
[2017-03-29 13:10] LABS: BASOPHILS # (AUTO) 0.04 10*3/UL; BASOPHILS % (AUTO) 0.5 % (0-1); EOSINOPHILS # (AUTO) 0.16 10*3/UL; EOSINOPHILS % (AUTO) 1.9 % (0-8); HEMATOCRIT 43.2 % (37.0-47.0); HEMOGLOBIN 14.5 g/dL (12.0-16.0); LYMPHOCYTES # (AUTO) 1.71 10*3/uL; MEAN CORPUSCULAR HEMOGLOBIN 28.6 PG (27-31); MEAN CORPUSCULAR HGB CONC 33.6 g/dL (33-37); MEAN CORPUSCULAR VOLUME 85.2 FL (81-99); MEAN PLATELET VOLUME 9.7 FL (7.4-12.2); MONOCYTES # (AUTO) 0.64 10*3/UL (0.3-0.8); MONOCYTES % (AUTO) 7.6 % (5-15); NEUTROPHILS # (AUTO) 5.83 10*3/UL; NEUTROPHILS % (AUTO) 69.3 % (50-80); RED BLOOD COUNT 5.07 10^6/uL (4.20-5.40)
[2017-03-29 13:12] LABS: PLATELET MORPHOLOGY COMMENT NORMAL MORPHOLOGY (NORM); RBC MORPHOLOGY COMMENT NORMAL MORPHOLOGY (NORM); WBC MORPHOLOGY COMMENT NORMAL MORPHOLOGY (NORM)
[2017-03-29 13:18] LABS: BLOOD UREA NITROGEN 14 mg/dL (7-22); BUN/CREATININE RATIO 15.55 (6-20); EST GLOMERULAR FILTRATION > 60 (>60 ml/min/1.73m(2)); LIPASE 138 IU/L (23-300); SERUM ALBUMIN 4.6 g/dL (3.5-4.8)
[2017-03-29 13:44] VITALS: RESP 12; TEMP 97.8
--- NOTE | 2017-03-29 14:00 | DI ---
CT ABD W/CN AND PELVIS W/CN,03/29/2017 12:54 PM: Clinical History: Abdominal pain Previous Exam: None at this facility. Findings: Multiple helically acquired CT images are obtained through the abdomen and pelvis following the intra venous administration of 85 cc of Isovue 300. Patient is breast-feeding, and was instructed to pump a nd dump for the first 24 hours. The uterus and adnexa are not well evaluated, but are grossly normal. There is a section scar noted. The appendix is normal. The urinary bladder is normal. There is no free fluid within the deep pelvis. There is no mesenteric or retroperitoneal lymphadenopathy. The pancreas, spleen, adrenals, kidneys and gallbladder are unremarkable. The lung bases are clear. Large and small bowel loops are also unremarkable. The lung bases are clear. Skeletal structures are unremarkable. There is mild loss of intervertebral disc height at L5/S1. Impression: 1. No acute intra-abdominal pathology.
[2017-03-29 14:23] LABS: BILIRUBIN,URINE NEGATIVE (NEG); CLARITY,URINE CLEAR (CLEAR); COLOR,URINE YELLOW; GLUCOSE, URINE (UA) NEGATIVE (NEG); NITRATE,URINE NEGATIVE (NEG); OCCULT BLOOD,URINE NEGATIVE (NEG); PH,URINE 5.5 (5.0-8.5); PROTEIN,URINE NEGATIVE (NEG); URINE SAMPLE TYPE VOIDED SPECIMEN; UROBILINOGEN,URINE 0.2 EU/dL (0.2)
== END 2017-03-29 14:47 | disposition home or self-care (01) ==
LOC: ER 12:43
DX: R10.11 Right upper quadrant pain (principal); R11.2 Nausea with vomiting, unspecified; R10.12 Left upper quadrant pain; R10.31 Right lower quadrant pain
CPT/HCPCS: 74177; 80053; 81003; 82150; 83690; 84703; 85025; 96374; 96375; 99283; J1885; J2405; J7030

== ENCOUNTER → 2017-03-30 | Outpatient (CLI) | payer OTHER ==
--- NOTE | 2017-03-30 10:15 | DI ---
US ABDOMEN LIMITED,03/30/2017 8:04 AM: Clinical History: Right upper quadrant pain. Previous Exam: None at this facility. Findings: Multiple grayscale and color Doppler sonographic images are obtained of the right upper quadrant, and demonstrate a normal-appearing liver. The pancreas is unremarkable. The gallbladder is normal and the gallbladder wall measures 2 mm. Negative sonographic Colón's sign was obtained. The common bile duct measures 4 mm. The right kidney is normal without hydronephrosis measuring 10.9 cm in length. Visualized portions of the aorta are normal. Impression: Normal right upper quadrant ultrasound.
== END ==
LOC: US 07:56
PROVIDERS: ATTEND Personal Emergency Response Attendant
DX: R10.11 Right upper quadrant pain (principal)
CPT/HCPCS: 76705

== ENCOUNTER → 2017-04-05 | Outpatient (CLI) | payer OTHER ==
--- NOTE | 2017-04-05 12:50 | DI ---
Tc-99 HIDA BILIARY SCAN WITH FATTY MEAL CHALLENGE, : Clinical History: Right upper quadrant pain. Previous Related Exam: Ultrasound abdomen performed March 30, 2017 The patient was injected with 5.0 mCi of Tc-99 Choletec, a HIDA compound. An anterior dynamic flow study was performed followed by sequential anterior imaging at one minute in tervals out to 60 minutes. The patient was then given a 38 gm fatty challenge and sequential anterior imaging at one minute inte rvals was carried out to 60 minutes for the gall bladder ejection phase. The patient demonstrated some right upper quadrant pain following the fatty meal challenge. There is normal uptake within the liver. There is also activity noted within the small bowel. Gall bladder ejection fraction was calculated to be 94 %. Reading: Normal excretory Tc-99 HIDA biliary kinetics.
== END ==
LOC: NM 06:49
PROVIDERS: ATTEND Nurse Practitioner Family
DX: R10.11 Right upper quadrant pain (principal); R11.2 Nausea with vomiting, unspecified
CPT/HCPCS: 78226; A9537

== ENCOUNTER 2017-04-14 08:44 | Day surgery (SDC) | payer OTHER ==
[2017-04-14 09:10] LABS: URINE SPECIFIC GRAVITY - MAN 1.022
[2017-04-14] MEDS ORDERED: LIDOCAINE W/ SODIUM BICARB 0.5 ML SYR ONE (09:15)
--- NOTE | 2017-04-14 09:49 | GEN.OPNOTE ---
EGD Operative Note Surgery Date: 04/14/17 Preoperative Diagnosis: Right upper quadrant abdominal pain with normal ultrasound HIDA scan Postoperative Diagnosis: Right upper quadrant abdominal pain with normal ultrasound HIDA scan Procedure: Esophagogastroduodenoscopy with biopsy Surgeon: Jose Torres MD Anesthesia Provider: Billie Figueroa CRNA Anesthesia Type: MAC Indications: Patient has persistent elevated right upper quadrant abdominal pain. She had a normal ultrasound of her gallbladder and also a normal HIDA scan Findings: Esophagus: [employer] video EGD scope inserted in posterior pharynx. Guidance esophagus under direct visualization. Patient had esophagus appeared be totally normal GE Junction : GE junction proximal be 40 cm from incisors Fundus : Scope retroflexed on itself revealing normal fundus Body : Body the stomach was normal with no abnormal polyps, ulcers, or inflammatory conditions Prepyloric : Prepyloric area appeared to be normal Small Intestine : First second third portion duodenum were normal. Did random biopsies of the duodenal bulb to rule out celiac disease A lubricated flexible upper endoscope was inserted and passed through the esophagus and stomach into the duodenum.
[2017-04-14 12:58] VITALS: RESP 16
[2017-04-14 13:01] VITALS: TEMP 97.4
== END 2017-04-14 10:18 | disposition home or self-care (01) ==
LOC: SDSC 08:44
PROVIDERS: ATTEND Surgery
DX: R10.11 Right upper quadrant pain (principal)
CPT/HCPCS: 43239; 84703; J2704